=== PATIENT | female | born 1930 | race Caucasian/White ===

== ENCOUNTER 2017-08-01 15:54 | Emergency (ER) | payer MEDICARE, BC ==
[2017-08-01] MEDS ORDERED: ACETAMINOPHEN 325 MG TAB PO ONE (16:09)
[2017-08-01] MEDS ORDERED: Diph,Pert(Acell),Tet Vac 0.5 ML SYR IM ONE (16:10)
--- NOTE | 2017-08-01 16:14 | Emergency Department Record ---
History of Present Illness - General Chief Complaint: Fall Injury Stated Complaint: FALL Time Seen by Provider: 08/01/17 16:05 Source: Patient, Family Mode of Arrival: Wheelchair Limitations: No limitations - History of Present Illness Initial Comments: The patient is here due to tripping and falling at home about 5 hours ago. Per family she tripped landing on the floor and injuring her L ribs and elbow. There was no reported LOC or head injury. The patient has been able to ambulate normally since the fall. There has been no reported MORALES, neck pain, AP, nausea, vomiting, or back pain. The patient is not on any blood thinners per family. MD Complaint: Fall Onset/Timin -: Hour(s) Fall From: Standing When Fall Occurred: 4-6 hours [employer] Fall Witnessed: No Place Fall Occurred: Home Loss of Consciousness: None Prolonged Down Time?: No Symptoms Prior to Fall: None Severity scale (1-10): 7 Quality: Sharp Context: Tripped/slipped Associated Symptoms: Denies - Related Data Allergies Allergy/AdvReac Type Severity Reaction Status Date / Time No Known Drug Allergies Allergy Verified 06/29/15 12:25 Travel Screening - Travel/Exposure Within Last 30 Days Have you traveled within the last 30 days?: No Review of Systems Constitutional: Denies: Chills, Fever Eyes: Denies: Eye discharge ENT: Denies: Congestion Respiratory: Denies: Cough, Dyspnea Past Medical History - SOCIAL HISTORY Smoking Status: Former smoker - RESPIRATORY Hx Respiratory Disorders: Yes Hx COPD: Yes - CARDIOVASCULAR Hx Cardio Disorders: Yes Hx Cardiac Cath: Yes Hx Heart Attack: Yes Hx Hypertension: Yes - NEURO Hx Neuro Disorders: Yes Comment:: dementia - GI Hx GI Disorders: No - Hx Genitourinary Disorders: No - ENDOCRINE Hx Endocrine Disorders: Yes Hx Thyroid Disease: Yes - MUSCULOSKELETAL Hx Musculoskeletal Disorders: No - PSYCH Hx Psych Problems: Yes Hx Depression: Yes - HEMATOLOGY/ONCOLOGY Hx Hematology/Oncology Disorders: Yes Comment:: osteopenia Family Medical History Any Significant Family History?: Yes Hx Dementia: Mother Hx Heart Disease: Father Physical Exam - General General Appearance: Alert, Oriented x3, Cooperative, No acute distress - Head Head exam: Atraumatic, Normocephalic, Normal inspection - Eye Eye exam: Normal appearance, PERRL - Neck Neck exam: Normal inspection, Full ROM. negative: Tenderness - Respiratory Respiratory exam: Normal lung sounds bilaterally, Chest wall tenderness (The L rib pain is very reproducible to palpation over the L lateral lower ribs.). negative: Respiratory distress - Cardiovascular Cardiovascular Exam: Regular rate, Normal rhythm, Normal heart sounds - GI/Abdominal GI/Abdominal exam: Soft, Normal bowel sounds. negative: Tenderness - Extremities Extremities exam: Full ROM (There is normal L elbow ROM with no pain.), Normal capillary refill, Tenderness (There is mild L lateral elbow tenderness with a small skin tear present. ). negative: Normal inspection, Joint swelling - Neurological Neurological exam: Alert. negative: Motor sensory deficit Course - Reevaluation(s) Reevaluation #1: The patient is doing a lot better at this time. I did discuss the neg xrays with the patient and family. She is to use ice to the affected areas and Tylenol for pain and see her family doctor for recheck next week. 08/01/17 17:31 Medical Decision Making - Data Complexity MDM Data: X-Ray Ordered and/or Reviewed - Radiology Data Radiology results: Report reviewed (L ribs and elbow: Neg per Rad for acute fx or dislocation.) Disposition Disposition: Discharge Clinical Impression: Contusion of rib on left side Qualifiers: Encounter type: initial encounter Qualified Code(s): S20.212A - Contusion of left front wall of thorax, initial encounter Disposition: Home, Self-Care Condition: (2) Stable Instructions: Fall Prevention for Older Adults (ED), Rib Contusion (ED) Additional Instructions: Please use Tylenol for pain and rest when possible. Please see your family doctor for recheck next week. Return to the ER for any worsening pain, fever, or vomiting. Forms: Patient Portal Access Time of Disposition: 17:31 Quality - Quality Measures Quality Measures: N/A - Blood Pressure Screening View Details: Yes Does Patient Have Any of the Following: No Blood Pressure Classification: Pre-Hypertensive BP Reading Systolic Measurement: 146 Diastolic Measurement: 85 Screening for High Blood Pressure: < Pre-Hypertensive BP, F/U Documented > [ [id number]] Pre-Hypertensive Follow-up Interventions: Referral to alternative/primary care provider.
--- NOTE | 2017-08-03 11:41 | RADIOLOGY REPORT ---
DATE: 08/01/2017 at 4:24 p.m. EXAM: LEFT ELBOW. HISTORY: The patient fell this morning with pain in the left elbow. TECHNIQUE: Three views of the left elbow. COMPARISON: None. FINDINGS: Diffuse osteopenia is seen consistent with osteoporosis. No definite fracture or dislocation seen involving the left elbow, and no definite joint effusion identified. IMPRESSION: 1. OSTEOPOROSIS. 2. NO DEFINITE FRACTURE OF THE LEFT ELBOW IDENTIFIED. JOB NUMBER: [id number] MTDD
--- NOTE | 2017-08-03 11:54 | RADIOLOGY REPORT ---
DATE: 08/01/2017 at 4:30 p.m. EXAM: LEFT RIBS WITH AP OF THE CHEST. HISTORY: The patient fell this morning with pain in the left anterior lower ribs. TECHNIQUE: AP and oblique views of the left ribs. AP of the chest. COMPARISON: No prior left rib series. Two-view, chest, 10/09/2013. ENCOUNTER: Initial. FINDINGS: Prominent degenerative arthritis in the left shoulder. Mild degenerative arthritis in the right shoulder. Probable hiatal hernia creating an air fluid level seen through the heart. A somewhat elongated calcific density 18 mm in size in the left midchest also present previously is likely a calcified granuloma. A small nodule distal to this also present previously is also likely a granuloma. There is mild deformity anterolaterally in the left fourth rib which was present previously as well. This is likely an old, healed fracture. No definite acute fracture of the left ribs identified. No pneumothorax or pleural effusion evident. Mild upper thoracic dextroscoliosis and lower thoracic levoscoliosis. Some linear fibrosis and discoid atelectasis in the right lung base. The lungs do appear somewhat hyperinflated suggesting chronic obstructive pulmonary disease. IMPRESSION: 1. OSTEOPOROSIS. 2. SCOLIOSIS. 3. 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 4. OLD LEFT FOURTH RIB FRACTURE ANTERIORLY. NO DEFINITE ACUTE LEFT RIB FRACTURE IDENTIFIED. 5. APPARENT HIATAL HERNIA. 6. CALCIFIED GRANULOMAS ON THE LEFT. 7. THE LUNGS APPEAR SOMEWHAT HYPERINFLATED SUGGESTING UNDERLYING CHRONIC OBSTRUCTIVE PULMONARY DISEASE. JOB NUMBER: [id number] MTDD
== END 2017-08-01 18:04 | disposition home or self-care (01) ==
LOC: ER 15:54
DX: S20.212A Contusion of left front wall of thorax, initial encounter (principal); R07.81 Pleurodynia; M25.522 Pain in left elbow; I10 Essential (primary) hypertension; I25.2 Old myocardial infarction; F17.210 Nicotine dependence, cigarettes, uncomplicated; W01.10XA Fall on same level from slipping, tripping and stumbling with subsequent striking against unspecified object, initial encounter; Y92.009 Unspecified place in unspecified non-institutional (private) residence as the place of occurrence of the external cause
CPT/HCPCS: 90715; 99283; 99284